=== PATIENT | male | born 2000 | race Caucasian/White ===

== ENCOUNTER 2020-10-07 11:14 | Emergency (ER) | payer BC, OTHER ==
[2020-10-07 11:44] VITALS: BP 143/89; PULSE 126; TEMP 101; BMI 40.3
[2020-10-07] MEDS ORDERED: ACETAMINOPHEN 325 MG TABLET (FP) PO ONE (12:32)
[2020-10-07] MEDS ORDERED: ACETAMINOPHEN 325 MG TABLET (FP) ONE (12:44)
== END 2020-10-07 13:26 | disposition home or self-care (01) ==
LOC: JER 11:14
DX: U07.1 COVID-19 (principal); R50.9 Fever, unspecified; J02.9 Acute pharyngitis, unspecified
CPT/HCPCS: 71046-TC-FY; 87070; 87880; 99284-25; C9803; U0003

== ENCOUNTER 2021-04-01 17:43 | Emergency (ER) | payer BC, OTHER ==
[2021-04-01 19:27] VITALS: BP 152/86; PULSE 77; TEMP 98.9; BMI 42.3
== END 2021-04-01 20:00 | disposition home or self-care (01) ==
LOC: JERFT 17:43 → JER 17:43 → JERFT 20:00
DX: J06.9 Acute upper respiratory infection, unspecified (principal); R05 Cough; R09.81 Nasal congestion
CPT/HCPCS: 71046-TC-FY; 93005; 93010; 99284-25